=== PATIENT | female | born 1980 | race Caucasian/White ===

== ENCOUNTER 2017-07-19 20:43 | Emergency (ER) | payer OTHER ==
[~2017-07-19] VITALS: Ht 157.5 cm; Wt 56.8 kg
[2017-07-19 20:45] VITALS: BP 106/34; PULSE 79; TEMP 99
[2017-07-19] MEDS ORDERED: PROGESTERO50 MG/1 ML IM (20:49)
[2017-07-19] MEDS ORDERED: PROBIOTIC FORMU1 CAP PO (20:49)
[2017-07-19] MEDS ORDERED: DICLEGIS (20:49)
[2017-07-19] MEDS ORDERED: MULTI VITAMINS1 TAB PO (20:49)
== END 2017-07-19 21:22 | disposition home or self-care (01) ==
LOC: COL.ER 20:43
DX: O99.89 Other specified diseases and conditions complicating pregnancy, childbirth and the puerperium (principal); S30.1XXA Contusion of abdominal wall, initial encounter; Z3A.10 10 weeks gestation of pregnancy; W50.0XXA Accidental hit or strike by another person, initial encounter

== ENCOUNTER 2017-09-21 07:58 | Emergency (ER) | payer OTHER ==
[~2017-09-21] VITALS: Ht 157.5 cm; Wt 61.4 kg
[~2017-09-21 07:58] MED LIST: DICLEGIS; MULTI VITAMINS1 TAB PO; PROBIOTIC FORMU1 CAP PO; PROGESTERO50 MG/1 ML IM
[2017-09-21 08:01] VITALS: TEMP 98.7
[2017-09-21 08:44] LABS: BASO % 0.5 % (0.0-2.0); EOS # 0.2 (0.0-0.7); EOS % 2.9 % (0-4.0); GRAN # 3.6 (1.4-6.5); GRAN % 64.5 % (42.2-75.2); LYMPH # 1.4 (1.2-3.4); LYMPH % 25.5 % (20.0-51.0); MEAN CELL VOLUME 93 fl (80.0-100.0); MEAN CORPUSCULAR HGB CONC 35 g/dl (33.0-37.0); MEAN PLATELET VOLUME 9.7 fl (7.4-10.4); MONO # 0.3 (0.1-0.6); MONO % 6.1 % (1.7-9.3); PLATELET COUNT 182 K/mm3 (130-400); WHITE BLOOD COUNT 5.6 K/mm3 (4.8-10.8)
[2017-09-21 08:51] LABS: HEMATOCRIT 33.4 % (37.0-47.0); HEMOGLOBIN 11.6 g/dl (12.5-16.0); MEAN CORPUSCULAR HEMOGLOBIN 32 pg (27.0-31.0)
[2017-09-21 08:57] LABS: COLLECTION METHOD CATHETER
[2017-09-21 09:00] LABS: ADJUSTED CALCIUM 9.2 mg/dL (8.4-10.2); ALBUMIN 3.7 gm/dL (3.5-5.0); BILIRUBIN,TOTAL 0.4 mg/dL (0.0-1.0); CREATININE, serum 0.52 mg/dL (0.52-1.25); POTASSIUM 3.5 mmol/L (3.4-5.0)
[2017-09-21 09:12] LABS: MUCOUS Present /lpf; PH 6 (5-8); SQUAMOUS EPITHELIAL 0-2 /hpf; URINE APPEARANCE Clear; URINE BACTERIA Rare /hpf; URINE BILIRUBIN Negative (NEGATIVE); URINE BLOOD Negative (NEGATIVE); URINE COLOR Yellow; URINE GLUCOSE Negative (NEGATIVE); URINE KETONE Negative (NEGATIVE); URINE LEUKOCYTE ESTERASE Negative (NEGATIVE); URINE PROTEIN(semi-quant) Negative (NEGATIVE); URINE UROBILINOGEN Negative (NEGATIVE); URINE WBC 0-2 /hpf
[2017-09-21 11:00] VITALS: BP 100/58; PULSE 76
[2017-09-21] MEDS ORDERED: IMODIUM 2MG CAPS2 MG PO (12:40)
== END 2017-09-21 11:05 | disposition other institution (70) ==
LOC: COL.ER 07:58
PROVIDERS: Physician Assistant
DX: O99.89 Other specified diseases and conditions complicating pregnancy, childbirth and the puerperium (principal); R10.84 Generalized abdominal pain; R19.7 Diarrhea, unspecified; Z3A.18 18 weeks gestation of pregnancy; Z98.890 Other specified postprocedural states

== ENCOUNTER → 2017-09-30 | Outpatient (CLI) | payer OTHER ==
[~2017-09-30] MED LIST changes: +IMODIUM 2MG CAPS2 MG PO
== END ==
LOC: COL.LAB 13:54
DX: Z01.89 Encounter for other specified special examinations (principal)

== ENCOUNTER → 2017-10-10 | Outpatient (CLI) | payer OTHER | LOC: COL.VAS 14:00 | DX: O99.89 Other specified diseases and conditions complicating pregnancy, childbirth and the puerperium (principal); M79.604 Pain in right leg; M79.89 Other specified soft tissue disorders; Z3A.21 21 weeks gestation of pregnancy ==

== ENCOUNTER 2017-11-09 11:04 | Emergency (ER) | payer OTHER ==
[~2017-11-09] VITALS: Ht 157.5 cm; Wt 65.5 kg
[2017-11-09 11:09] VITALS: BP 111/56; TEMP 97.8
[2017-11-09] MEDS ORDERED: VITAMIN C500 MG PO (11:12)
[2017-11-09] MEDS ORDERED: PRENATAL PO (11:12)
[2017-11-09 12:28] LABS: INFLUENZA A NEGATIVE; INFLUENZA B NEGATIVE
[2017-11-09] MEDS ORDERED: OMNICEF 300MG300 MG PO (12:45)
[2017-11-09 13:19] VITALS: PULSE 70
== END 2017-11-09 13:19 | disposition home or self-care (01) ==
LOC: LDRO 11:04 → COL.ER 11:04 → EDSTATUS 11:07 → COL.ER 13:19
PROVIDERS: Nurse Practitioner
DX: O26.892 Other specified pregnancy related conditions, second trimester (principal); O22.02 Varicose veins of lower extremity in pregnancy, second trimester; J32.9 Chronic sinusitis, unspecified; Z3A.26 26 weeks gestation of pregnancy; Z87.891 Personal history of nicotine dependence

== ENCOUNTER 2017-11-09 13:30 | Outpatient (CLI) | payer OTHER ==
[~2017-11-09] VITALS: Ht 157.5 cm; Wt 64.1 kg
[~2017-11-09 13:30] MED LIST changes: +OMNICEF 300MG300 MG PO; +PRENATAL PO; +VITAMIN C500 MG PO
[2017-11-09 13:48] VITALS: BP 104/60; PULSE 68; TEMP 98.7
== END 2017-11-09 14:15 | disposition home or self-care (01) ==
LOC: LDRO 13:30
DX: O76 Abnormality in fetal heart rate and rhythm complicating labor and delivery (principal); Z3A.25 25 weeks gestation of pregnancy

== ENCOUNTER 2018-02-09 05:35 | Inpatient (IN) | payer OTHER ==
[2018-02-09] VITALS (19 sets, daily range): BP systolic 95–131; BP diastolic 51–86; PULSE 71–103; TEMP 97.5–98
[~2018-02-09] VITALS: Ht 157.5 cm; Wt 74.1 kg
[2018-02-09 06:17] LABS: BASO % 0.4 % (0.0-2.0); EOS # 0.2 (0.0-0.7); EOS % 2.1 % (0-4.0); GRAN # 4.4 (1.4-6.5); GRAN % 54.1 % (42.2-75.2); HEMOGLOBIN 12.6 g/dl (12.5-16.0); LYMPH # 2.7 (1.2-3.4); LYMPH % 33.3 % (20.0-51.0); MEAN CELL VOLUME 94 fl (80.0-100.0); MEAN CORPUSCULAR HEMOGLOBIN 33 pg (27.0-31.0); MEAN CORPUSCULAR HGB CONC 35 g/dl (33.0-37.0); MEAN PLATELET VOLUME 10.7 fl (7.4-10.4); MONO # 0.7 (0.1-0.6); PLATELET COUNT 196 K/mm3 (130-400); RED BLOOD COUNT 3.84 M/mm3 (4.10-5.30); REDCELL DISTRIBUTION WIDTH-CV 13.3 % (11.5-14.5)
[2018-02-09] MEDS ORDERED: FERRO-TIME325 MG PO (06:31)
[2018-02-09] MEDS ORDERED: FLONASEALLERGY NS (06:32)
[2018-02-09] MEDS ORDERED: ZOVIRAX400 MG PO (06:33)
[2018-02-10 02:26] VITALS: BP 126/75; PULSE 83; TEMP 98.3
[2018-02-10 06:32] LABS: HEMATOCRIT 31.4 % (37.0-47.0); HEMOGLOBIN 10.6 g/dl (12.5-16.0)
[2018-02-10 08:04] VITALS: BP 109/72; PULSE 83; TEMP 97.4
[2018-02-10 16:10] VITALS: BP 116/72; PULSE 68; TEMP 97.4
[2018-02-10 19:40] VITALS: BP 112/71; PULSE 79; TEMP 97.6
[2018-02-11 08:00] VITALS: BP 114/63; PULSE 65; TEMP 97.6
[2018-02-11] MEDS ORDERED: IBU600 MG PO (08:35)
[2018-02-11] MEDS ORDERED: PERCOCET 325 MG1 TA2 PO (08:35)
[2018-02-11 16:45] VITALS: BP 114/65; PULSE 71; TEMP 98.3
[2018-02-11 20:20] VITALS: BP 128/57; PULSE 79; TEMP 97.8
[2018-02-12 08:30] VITALS: BP 110/63; PULSE 61; TEMP 98.2
[2018-02-12 09:11] VITALS: BP 110/63; PULSE 61; TEMP 98.2
== END 2018-02-12 12:07 | disposition home or self-care (01) | DRG 766 ==
LOC: OB 05:35 → LDR 07:45 → OB 02-12 12:07
PROVIDERS: Obstetrics & Gynecology
PROC: 10D00Z1 Extraction of Products of Conception, Low, Open Approach (ICD-10-PCS; principal; 2018-02-09)
DX: O34.211 Maternal care for low transverse scar from previous cesarean delivery (principal); N85.8 Other specified noninflammatory disorders of uterus; O69.81X0 Labor and delivery complicated by cord around neck, without compression, not applicable or unspecified; Z3A.39 39 weeks gestation of pregnancy; Z37.0 Single live birth
CPT/HCPCS: J0171; J0690; J1885; J2250; J2270; J2370; J2405; J2550; J2590; J7120

== ENCOUNTER → 2018-03-04 | Outpatient (CLI) | payer OTHER ==
[~2018-03-04] MED LIST changes: +FERRO-TIME325 MG PO; +FLONASEALLERGY NS; +IBU600 MG PO; +PERCOCET 325 MG1 TA2 PO; +ZOVIRAX400 MG PO
== END ==
LOC: LAC 13:11
DX: Z39.1 Encounter for care and examination of lactating mother (principal); Z71.89 Other specified counseling

== ENCOUNTER → 2018-07-28 | Outpatient (CLI) | payer OTHER | LOC: LAC 11:30 | DX: Z39.1 Encounter for care and examination of lactating mother (principal); Z71.89 Other specified counseling ==